=== PATIENT | male | born 1955 | race Caucasian/White ===

== ENCOUNTER 2019-10-10 15:22 | Inpatient (IN) | payer OTHER ==
[~2019-10-10] VITALS: Ht 162.6 cm; Wt 95.7 kg
--- NOTE | 2019-10-10 15:35 | NUR ---
BIBA RA 90 From Home "Chest pressure started 2H ago radiating to Left arm given 3NTG and 325 Asa NSR" Patient a/ox4, breathing even and unlabored, no sob noted, needs attended. Attached to the panel monitor.
--- NOTE | 2019-10-10 15:48 | NUR ---
SUBMITTED MOVE SHEET AND CALLED FOR TELE BED.
[2019-10-10] MEDS ORDERED: ONDANSETRON HCL/PF 4 MG/2 ML VIAL ONE (15:51)
[2019-10-10] MEDS ORDERED: MORPHINE SULFATE INJ 4 MG/ML DISP.SYRIN ONE (15:51)
[2019-10-10] MEDS ORDERED: ONDANSETRON HCL/PF 4 MG/2 ML VIAL IVP ONE (16:00)
[2019-10-10] MEDS ORDERED: MORPHINE SULFATE INJ 2 MG/ML DISP.SYRIN IV ONE ×2 (16:00→16:30)
--- NOTE | 2019-10-10 16:06 | NUR ---
PT REFUSED TO HAVE THE COVID ATIGEN SWAB TO BE DONE. MD IS MADE AWARE.
[2019-10-10 16:11] LABS: BASOPHILS # (AUTO) 0.1 /CMM (0.0-0.2); EOSINOPHILS % (AUTO) 1.6 % (0.0-6.0); HEMATOCRIT 41 % (39-51); HEMOGLOBIN 13.7 g/dL (13.5-17.5); LYMPHOCYTES # (AUTO) 2.9 /CMM (0.8-4.8); MEAN CORPUSCULAR HGB CONC 34 g/dl (31.0-36.0); MEAN CORPUSCULAR VOLUME 93 fL (80-96); MONOCYTES # (AUTO) 0.7 /CMM (0.1-1.30); MONOCYTES % (AUTO) 7.9 % (2.0-12.0); NEUTROPHILS % (AUTO) 56.5 % (43.0-81.0); PLATELET COUNT (AUTO) 206 /CMM (150-450); WHITE BLOOD COUNT (AUTO) 8.8 K/uL (4.3-11.0)
[2019-10-10] MEDS ORDERED: LORAZEPAM INJ 2 MG/ML VIAL ONE (16:12)
[2019-10-10] MEDS ORDERED: LORAZEPAM INJ 2 MG/ML VIAL IV ONE (16:30)
[2019-10-10 16:42] LABS: CALCIUM, SERUM 8.7 mg/dL (8.5-10.1); CREATININE 1.2 mg/dL (0.6-1.3); POTASSIUM 3.5 mmol/L (3.5-5.1)
--- NOTE | 2019-10-10 16:43 | NUR ---
PATIENT RESTING, DENIES CHEST PAIN AT THIS TIME. NEEDS ATTENDED. KEPT COMFORTABLE. PT STATED HE'S HUNGRY, CARDIAC DIET ORDERED, OK'D BY DR. KLEIN.
--- NOTE | 2019-10-10 16:50 | NUR ---
REPORT GIVEN TO ALON ADVANCED PRACTICE NURSE.
[2019-10-10] MEDS ORDERED: METF-442 PO (17:32)
[2019-10-10] MEDS ORDERED: INSU100V SQ (17:32)
[2019-10-10] MEDS ORDERED: SENN-261 PO (17:32)
[2019-10-10] MEDS ORDERED: ATOR80TA PO (17:32)
[2019-10-10] MEDS ORDERED: IBUP-1955 PO (17:32)
[2019-10-10] MEDS ORDERED: INSU100I26 SQ (17:32)
[2019-10-10] MEDS ORDERED: GABA300C PO (17:32)
[2019-10-10] MEDS ORDERED: PANT40TA4 PO (17:32)
[2019-10-10] MEDS ORDERED: LOSA100T31 PO (17:32)
[2019-10-10] MEDS ORDERED: ERTU5TAB PO (17:32)
[2019-10-10] MEDS ORDERED: AMLO2.5T4 PO (17:32)
[2019-10-10] MEDS ORDERED: CLOP75TA15 PO (17:32)
[2019-10-10] MEDS ORDERED: ASPI-1420 PO (17:32)
[2019-10-10] MEDS ORDERED: EZET10TA32 PO (17:32)
[2019-10-10] MEDS ORDERED: FURO40TA5 PO (17:32)
[2019-10-10] MEDS ORDERED: TAMS-12 PO (17:32)
[2019-10-10] MEDS ORDERED: CARV25TA2 PO (17:32)
--- NOTE | 2019-10-10 18:05 | NUR ---
CONSULT BO LOPEZ CALLED [phone].
[2019-10-10] MEDS ORDERED: ASPIRIN 325 MG TABLET PO SCH (19:00)
[2019-10-10] MEDS ORDERED: ACETAMINOPHEN 325 MG TABLET PO PRN (19:00)
[2019-10-10] MEDS ORDERED: Z GUARD REMEDY 2 OZ OINT TP PRN (19:00)
[2019-10-10] MEDS ORDERED: DEXTROSE 50%-WATER 50 ML DISP.SYRIN IV PRN (19:00)
[2019-10-10] MEDS ORDERED: *INSULIN REGULAR(HUMULIN R)HUM 100 UNIT/ML VIAL SQ PRN (19:00)
[2019-10-10] MEDS ORDERED: ONDANSETRON HCL/PF 4 MG/2 ML VIAL IVP PRN (19:00)
[2019-10-10] MEDS ORDERED: MAG HYDROX/AL HYDROX/SIMETH 30 ML UDC PO PRN (19:00)
[2019-10-10] MEDS ORDERED: MAGNESIUM HYDROXIDE 30 ML UDC PO PRN (19:00)
[2019-10-10] MEDS ORDERED: ENOXAPARIN SODIUM 100 MG/ML DISP.SYRIN SQ ONE (19:21)
[2019-10-10] MEDS ORDERED: ENOXAPARIN SODIUM 100 MG/ML DISP.SYRIN SQ SCH (19:30)
--- NOTE | 2019-10-10 19:35 | NUR ---
PATIENT RESTING, NO DISTRESS NOTED, DENIES PAIN AT THIS TIME. ENDORSED TO LOS GRANT FOR CELIA.
--- NOTE | 2019-10-10 20:25 | NUR ---
PT SITTING IN BED AWAKE AND LAERT. NO SOB. NO C/O PAIN OR DISCOMFORT. PT WAS PROVIDED W. FOOD AND DRINK. WILL CONT TO MONITOR ,
[2019-10-10] MEDS: NITROGLYCERIN PACKET 1 GM PACKET TOP SCH ×2 (21:00→22:36)
--- NOTE | 2019-10-10 21:04 | NUR ---
TELE 315-2
--- NOTE | 2019-10-10 21:11 | NUR ---
REOPRT GIVEN TO LEONARD ON THIRD FLOOR
[2019-10-10 21:30] VITALS: BP 140/68
--- NOTE | 2019-10-10 21:30 | NUR ---
FUEL PILOT ENGINEER ADMITTING NOTES PATIENT ARRIVED TO UNIT VIA GURNEY, ACCOMPANIED BY 2 ER STAFF; PATIENT AWAKE, A/OX4; BREATHING EVEN AND UNLABORED; NO SOB NOTED; TOLERATING ROOM AIR WELL; PATIENT INDEPENDENT WITH BED MOBILITY; VITALS STABLE; TELE MONITOR ATTACHED, READS NORMAL SINUS HALEIGH - SINUS RHYTHM 54S - 60S BPM; R HAND # 18, INTACT AND PATENT, FLUSHING WELL; NO S/S OF REDNESS OR INFILTRATION; PATIENT DOES NOT WANT TO REMOVE SWEAT PANTS; BUT WAS WILLING FOR SKIN ASSESSMENT; SKIN INTACT; PATIENT COMPLAINT OF 8 OR 9/10 CHEST PAIN; DESCRIBED FEELING LIKE SOMEONE IS PUSHING HIS CHEST; PATIENT REPORTED IN ER THAT IT SOMETIMES RADIATES TO ARMS; WILL CONT TO MONITOR; MEDICAL HISTORY OBTAINED; PATIENT DOES NOT WANT DVT PUMPS; NO DISTRESS NOTED; BELONGINGS CHECKED; PATIENT ORIENTED TO UNIT AND STAFF; SAFETY PRECAUTIONS IMPLEMENTED; BED LOCKED IN LOW POSITION; SIDE RAILSX2; CALL LIGHT WITHIN REACH; PATIENT ABLE TO MAKE NEEDS KNOWN; WILL CONT TO MONITOR PATIENT
--- NOTE | 2019-10-10 21:35 | NUR ---
PT WAS TRANSFERRED TO [facility] UNDER ACLS
--- NOTE | 2019-10-10 21:36 | NUR ---
ELEVATED TROP WAS RELAYED AND ENDORSED TO RUDY VALLE TO FOLLOW UP WITH HOSPITALIST
[2019-10-10 22:00] VITALS: BP 140/68
[2019-10-10] MEDS: ATORVASTATIN 40 MG TABLET PO SCH (22:35)
[2019-10-10] MEDS: TAMSULOSIN 0.4 MG CAP.SR.24H PO SCH (22:35)
[2019-10-10] MEDS: SENNOSIDES 8.6 MG TABLET PO SCH (22:35)
--- NOTE | 2019-10-10 22:35 | NUR ---
ENDOSCOPY NURSE VTE SCORE OF 3, MD MADE AWARE; AWAITING MD ORDERS FOR CHEMICAL PROPHYLAXIS; WILL CONT TO MONITOR
[2019-10-10] MEDS: BLOOD SUGAR DIAGNOSTIC 1 EACH STRIP VI SCH (22:45)
[2019-10-10] MEDS: MORPHINE SULFATE INJ 2 MG/ML DISP.SYRIN IV PRN (22:53)
--- NOTE | 2019-10-10 23:20 | NUR ---
NATURAL GAS TRADER NOTES SPOKE WITH RADIATION TECHNICIAN PHARMACY REGARDING DISCREPANCIES IN MED ORDERS; PER RADIATION TECHNICIAN PHARMACY, THEY WILL WORK ON FIXING THE MEDICATIONS SINCE PATIENT CAME UP TO UNIT AFTER DUE DATE FOR SOME; CHARGE NURSE AND NURSING SECOND CHEF AWARE; WILL CONT TO MONITOR;
[2019-10-10] MEDS: LORAZEPAM 1 MG TABLET PO PRN (23:47)
[2019-10-11] VITALS: BP 133/76
[2019-10-11] MEDS: HYDROCODONE/APAP 5/325MG TABLET PO PRN (03:33)
[2019-10-11] MEDS: ASPIRIN EC 81 MG TABLET.DR PO SCH (03:35)
[2019-10-11 04:00] VITALS: BP 128/76
[2019-10-11 04:30] VITALS: BP 125/76
[2019-10-11] MEDS: NITROGLYCERIN PACKET 1 GM PACKET TOP SCH (04:57)
--- NOTE | 2019-10-11 07:02 | NUR ---
PSYCHIATRY PHYSICIAN CLOSING NOTES PATIENT RESTING IN BED COMFORTABLY; A/OX4; BREATHING EVEN AND UNLABORED; TOLERATING ROOM AIR WELL; NO SOB NOTED; TELE MONITOR READS SINUS HALEIGH - SINUS RHYTHM WITH 54S - 60S BPM; R HAND #18 SL INTACT AND PATENT, FLUSHING WELL; PATIENT ABLE TO MAKE NEEDS KNOWN; PER PATIENT, OK TO APPLY DVT PUMPS IN MORNING, PATIENT WILL LET MORNING NURSE AWARE; R HAND #18 SL, INTACT AND PATENT; ALL NEEDS RENDERED; SAFETY PRECAUTIONS IMPLEMENTED; BED LOCKED IN LOW POSITION; SIDE RAILSX2; CALL LIGHT WITHIN EASY REACH; WILL ENDORSE CELIA TO ONCOMING NURSE
[2019-10-11 07:07] LABS: BASOPHILS # (AUTO) 0.1 /CMM (0.0-0.2); BASOPHILS % (AUTO) 0.8 % (0.0-2.0); EOSINOPHILS % (AUTO) 1.1 % (0.0-6.0); HEMATOCRIT 40 % (39-51); HEMOGLOBIN 13.1 g/dL (13.5-17.5); LYMPHOCYTES # (AUTO) 2.5 /CMM (0.8-4.8); LYMPHOCYTES % (AUTO) 29.9 % (20.0-44.0); MEAN CORPUSCULAR HGB CONC 33 g/dl (31.0-36.0); MEAN CORPUSCULAR VOLUME 94 fL (80-96); MONOCYTES # (AUTO) 0.6 /CMM (0.1-1.30); MONOCYTES % (AUTO) 7.2 % (2.0-12.0); NEUTROPHILS # (AUTO) 5.1 /CMM (1.8-8.9); PLATELET COUNT (AUTO) 184 /CMM (150-450); RED BLOOD CELL COUNT(AUTO) 4.31 MIL/uL (4.5-6.0); WHITE BLOOD COUNT (AUTO) 8.3 K/uL (4.3-11.0)
--- NOTE | 2019-10-11 07:24 | NUR ---
ASSISTANT EDITOR NOTES PATIENT RECEIVED IN BED RESTING COMFORTABLY, AWAKE, ALERT AND ORIENTED X 4. ON ROOM AIR WITH NO SIGNS OF RESPIRATORY DISTRESS AT THIS TIME, WITH EVEN NON-LABORED BREATHING, AND NO SOB NOTED. ON PROPERTY FIELD ADJUSTER, SINUS RHYTHM 75. SKIN WARM AND DRY TO TOUCH. IV ACCESS INTACT AND PATENT. PATIENT PRESENTS WITH NO SIGNS OF PAIN OR DISCOMFORT. SAFETY PRECAUTIONS IN PLACE WITH BED LOCKED, BED IN THE LOWEST POSITION, BILATERAL SIDE RAILS UP, AND CALL LIGHT WITHIN EASY REACH OF THE PATIENT. WILL CONTINUE TO MONITOR PATIENT.
[2019-10-11 08:00] VITALS: BP 116/59
[2019-10-11] MEDS ORDERED: NITROGLYCERIN 0.4 MG/TAB BOTTLE SL PRN (08:00)
[2019-10-11 08:13] LABS: CALCIUM, SERUM 8.5 mg/dL (8.5-10.1); CREATININE 1.2 mg/dL (0.6-1.3); MAGNESIUM 2.3 mg/dL (1.8-2.4); PHOSPHORUS 3.5 mg/dL (2.5-4.9); POTASSIUM 3.7 mmol/L (3.5-5.1)
[2019-10-11] MEDS ORDERED: ASPIRIN EC 81 MG TABLET.DR PO SCH (09:00)
[2019-10-11] MEDS: CARVEDILOL 12.5 MG TABLET PO SCH ×2 (09:00→17:01)
[2019-10-11] MEDS: FUROSEMIDE 40 MG TABLET PO SCH (09:26)
[2019-10-11] MEDS: GABAPENTIN 300 MG CAPSULE PO SCH ×2 (09:26→17:00)
[2019-10-11] MEDS: PANTOPRAZOLE 40 MG TABLET.DR PO SCH (09:27)
[2019-10-11] MEDS: AMLODIPINE BESYLATE 2.5 MG TABLET PO SCH (09:28)
[2019-10-11] MEDS: EZETIMIBE 10 MG TABLET PO SCH (09:28)
[2019-10-11] MEDS: CLOPIDOGREL BISULFATE 75 MG TABLET PO SCH (09:28)
[2019-10-11] MEDS: LOSARTAN POTASSIUM 50 MG TABLET PO SCH (09:28)
[2019-10-11] MEDS: ENOXAPARIN SODIUM 100 MG/ML DISP.SYRIN SQ SCH ×2 (09:30→20:30)
[2019-10-11] MEDS: BLOOD SUGAR DIAGNOSTIC 1 EACH STRIP VI SCH ×4 (09:31→21:19)
[2019-10-11] MEDS: LORAZEPAM 1 MG TABLET PO PRN ×2 (09:47→18:08)
--- NOTE | 2019-10-11 09:47 | NUR ---
ONCOLOGY NURSE NOTES PATIENT STATING HE IS ANXIOUS AND REQUESTING ATIVAN. ADMINISTERED PRN PO ATIVAN 0.5mg, ORDERED WILL CONTINUE TO MONITOR PATIENT.
[2019-10-11] MEDS ORDERED: NITROGLYCERIN 0.4 MG/TAB BOTTLE SL ONE (10:00)
[2019-10-11] MEDS ORDERED: METOPROLOL TARTRATE INJ 5 MG/5 ML AMPUL IVP PRN (10:00)
[2019-10-11] MEDS ORDERED: IV NS 0.9% 250 ML IV ONE (10:03)
[2019-10-11] MEDS ORDERED: IOHEXOL-350 100 ML VIAL IV ONE (10:03)
[2019-10-11] MEDS ORDERED: CT SWABBABLE VALVE TRANS SET 1 EA INFUS.SET MC ONE (10:03)
[2019-10-11] MEDS: IV NS 0.9% 1,000 ML IV PRN (10:23)
--- NOTE | 2019-10-11 11:00 | NUR ---
RN NOTES; POST CTA: Patient completed CTA procedure, able to tolerate well, no discomfort or pain at this time. Patient transferred back to floor report given to Veda GRANT
[2019-10-11 11:27] VITALS: BP 136/70
[2019-10-11] MEDS: MORPHINE SULFATE INJ 2 MG/ML DISP.SYRIN IV PRN ×2 (11:27→20:30)
--- NOTE | 2019-10-11 11:27 | NUR ---
OUTREACH LIAISON NOTES PATIENT COMPLAINING OF DULL ACHING PAIN THROUGHOUT HIS ARMS, PAIN IN HIS LEG WELL. REQUESTING PAIN MEDICATION , OFFERED NORCO, PATIENT STATES NORCO DOES NOT WORK AND REQUESTING MORPHINE. ADMINISTERED MORPHINE 2mg/mL ORDERED. WILL CONTINUE TO MONITOR PATIENT.
[2019-10-11] MEDS: NITROGLYCERIN 30 GM TUBE TOP SCH ×2 (13:13→20:59)
--- NOTE | 2019-10-11 15:00 | NUR ---
CST NOTES INFORMED DR LOPEZ CT ANGIOGRAM RESULTS, NO NEW ORDERS AT THIS TIME. WILL CONTINUE TO MONITOR PATIENT.
[2019-10-11] MEDS: INSULIN REGULAR, HUMAN 100 UNIT/ML 3 ML VIAL SQ PRN (17:08)
--- NOTE | 2019-10-11 18:08 | NUR ---
AUTO PARTS PROFESSIONAL NOTES PATIENT STATING HE FEELS ANXIOUS AND IS REQUESTING ATIVAN 1mg. INFORMED HIM THAT THE ORDERED DOSE IS 0.5mg, NOTIFIED DR CUTLER THAT PATIENT TAKES 1mg AT HOME. CHANGED PRN ATIVAN TO 1 mg PO AND ADMINISTERED ORDERED. WILL CONTINUE TO MONITOR PATIENT.
--- NOTE | 2019-10-11 19:25 | NUR ---
DRY CELL SEALER NOTES PATIENT IN BED RESTING COMFORTABLY, ALERT AND ORIENTED X 4. ON ROOM AIR WITH NO SIGNS OF RESPIRATORY DISTRESS AT THIS TIME, WITH EVEN NON-LABORED BREATHING, AND NO SIGNS OF SOB NOTED. PATIENT ON FINANCIAL PLANNING CONSULTANT SINUS RHYTHM, 64. PATIENT SKIN WARM AND DRY TO TOUCH, NEW IV ACCESS PLACE ON RIGHT HAND 22 gauge. WALKER AT BEDSIDE PER PATIENT REQUESTED. PROVIDED AND MET ALL PATIENT'S NEEDS. SAFETY PRECAUTIONS IMPLEMENTED WITH BED LOCKED, BED IN THE LOWEST POSITION, BED ALARM ON, BILATERAL SIDE RAILS UP, AND CALL LIGHT AT BEDSIDE. WILL ENDORSE PLAN OF CARE TO UPCOMING NURSE.
--- NOTE | 2019-10-11 19:40 | NUR ---
MORTISING MACHINE OPERATOR OPEN NOTES PATIENT IS LAYING IN BED. A/OX 4. ON RA, NO SOB/ ACUTE RESPIRATORY DISTRESS NOTED. BED IS IN LOWEST LOCKED POSITION WITH SIDE RAILS UP X3, SEMI FOWLERS. CALL LIGHT IS WITHIN REACH. WILL CONTINUE TO MONITOR.
[2019-10-11 20:56] VITALS: BP 148/75
[2019-10-11] MEDS: SENNOSIDES 8.6 MG TABLET PO SCH (21:13)
[2019-10-11] MEDS: TAMSULOSIN 0.4 MG CAP.SR.24H PO SCH (21:13)
[2019-10-11] MEDS: ATORVASTATIN 40 MG TABLET PO SCH (21:13)
[2019-10-12] VITALS: BP 127/56
[2019-10-12 02:58] VITALS: BP 127/56
[2019-10-12] MEDS: MORPHINE SULFATE INJ 2 MG/ML DISP.SYRIN IV PRN (03:20)
[2019-10-12 04:00] VITALS: BP 138/69
[2019-10-12] MEDS: NITROGLYCERIN 30 GM TUBE TOP SCH ×2 (04:33→13:33)
[2019-10-12] MEDS: IV NS 0.9% 1,000 ML IV PRN (06:05)
--- NOTE | 2019-10-12 06:36 | NUR ---
MANAGER SHIFT CLOSE NOTES PATIENT IS LAYING IN BED. A/O X4. ON RA, NO SOB/ ACUTE RESPIRATORY DISTRESS NOTED. IV IN RIGHT HAND #22G IS PATENT AND INTACT RUNNING NS @100MLS/HR. APPEARS COMFORTABLE/ NO COMPLAINTS OF PAIN AT THE MOMENT. ALL ACCUCHECKS DONE. BED IS IN LOWEST LOCKED POSITION WITH SIDE RAILS UP X3, SEMI FOWLERS. CALL LIGHT IS WITHIN REACH. WILL ENDORSE TO AM NURSE.
[2019-10-12] MEDS: BLOOD SUGAR DIAGNOSTIC 1 EACH STRIP VI SCH ×2 (06:38→11:35)
--- NOTE | 2019-10-12 07:27 | NUR ---
FUR MACHINE OPERATOR NOTES PATIENT RECEIVED IN BED AWAKE AND ORIENTED X 4. ON ROOM AIR WITH NO SIGNS OF RESPIRATORY DISTRESS AT THIS TIME, WITH NON-LABORED BREATHING, AND NO SIGNS OF SOB NOTED. ON PROGRAM MGR SINUS RHYTHM 61. PATIENT SKIN WARM AND DRY TO TOUCH, IV ACCESS INTACT AND PATENT. SAFETY PRECAUTIONS IMPLEMENTED WITH BED LOCKED, BED IN THE LOWEST POSITION, BILATERAL SIDE RAILS UP, BED ALARM ON AND CALL LIGHT WITHIN EASY REACH OF THE PATIENT. WILL CONTINUE TO MONITOR PATIENT.
[2019-10-12 08:00] VITALS: BP 150/78
[2019-10-12] MEDS: FUROSEMIDE 40 MG TABLET PO SCH (08:14)
[2019-10-12] MEDS: GABAPENTIN 300 MG CAPSULE PO SCH (08:14)
[2019-10-12] MEDS: PANTOPRAZOLE 40 MG TABLET.DR PO SCH (08:15)
[2019-10-12] MEDS: AMLODIPINE BESYLATE 2.5 MG TABLET PO SCH (08:15)
[2019-10-12] MEDS: EZETIMIBE 10 MG TABLET PO SCH (08:15)
[2019-10-12] MEDS: CLOPIDOGREL BISULFATE 75 MG TABLET PO SCH (08:15)
[2019-10-12] MEDS: ASPIRIN EC 81 MG TABLET.DR PO SCH (08:15)
[2019-10-12] MEDS: LOSARTAN POTASSIUM 50 MG TABLET PO SCH (08:15)
[2019-10-12] MEDS: CARVEDILOL 12.5 MG TABLET PO SCH (08:17)
[2019-10-12] MEDS: ENOXAPARIN SODIUM 100 MG/ML DISP.SYRIN SQ SCH (08:18)
[2019-10-12] MEDS: LORAZEPAM 1 MG TABLET PO PRN (08:19)
--- NOTE | 2019-10-12 09:00 | NUR ---
EMBEDDED FIRMWARE DEVELOPER NOTES PATIENT REMOVED IV, APPLIED PRESSURE TO SITE, AND CATHETER TIP INTACT.
[2019-10-12 09:51] VITALS: BP 132/73
[2019-10-12] MEDS: HYDROCODONE/APAP 5/325MG TABLET PO PRN (09:51)
--- NOTE | 2019-10-12 11:35 | NUR ---
MS RN NOTES PATIENT'S BLOOD SUGAR 171, REFUSING INSULIN DOSE PER SLIDING SCALE. EDUCATED AND EXPLAINED THE BENEFITS AND RISKS, PATIENT KEPT REFUSING. WILL CONTINUE TO MONITOR PATIENT.
[2019-10-12 13:33] VITALS: BP 144/71
[2019-10-12] MEDS: INSULIN REGULAR, HUMAN 100 UNIT/ML 3 ML VIAL SQ PRN (13:34)
--- NOTE | 2019-10-12 13:34 | NUR ---
MS RN NOTES PATIENT REQUESTING TO CHECK BLOOD SUGAR LEVELS. RECHECKED PATIENTS BLOOD SUGAR, 201, INFORMED THE NEED OF COVERAGE. PER SLINGING SCALE, 6 UNITS OF INSULIN NEEDED. PATIENT AGREED AND ADMINISTERED 6 UNITS. PROVIDED JUICE TO THE PATIENT.
--- NOTE | 2019-10-12 14:30 | NUR ---
MS RN NOTES PATIENT ALERT AND ORIENTED X 4, ON ROOM AIR WITH NO SIGNS OF RESPIRATORY DISTRESS, AND WITH NON-LABORED BREATHING. VITAL SIGNS STABLE AND PATIENT MEDICALLY STABLE FOR DISCHARGE BY MD. PATIENT ID BAND REMOVED. PATIENT ACCOUNTED FOR ALL BELONGINGS. EXIT CARE AND EDUCATED PROVIDED TO PATIENT. PATIENT LEFT UNIT VIA WHEELCHAIR ACCOMPANIED BY STAFF MEMBER. CELL LINER BY IN PRIVATE CAR.
== END 2019-10-12 15:06 | disposition home or self-care (01) | DRG 198 ==
LOC: ER 15:28 → TELE 21:13 → MED 10-12 10:05
PROVIDERS: ADMIT Internal Medicine; ATTEND Internal Medicine
DX: I25.10 Atherosclerotic heart disease of native coronary artery without angina pectoris (principal); E78.5 Hyperlipidemia, unspecified; F17.200 Nicotine dependence, unspecified, uncomplicated; G62.9 Polyneuropathy, unspecified; I25.2 Old myocardial infarction; J44.9 Chronic obstructive pulmonary disease, unspecified; N40.0 Benign prostatic hyperplasia without lower urinary tract symptoms; Z89.512 Acquired absence of left leg below knee; Z95.1 Presence of aortocoronary bypass graft; E11.51 Type 2 diabetes mellitus with diabetic peripheral angiopathy without gangrene; Z71.6 Tobacco abuse counseling; Z79.4 Long term (current) use of insulin; Z79.02 Long term (current) use of antithrombotics/antiplatelets; N18.9 Chronic kidney disease, unspecified; I12.9 Hypertensive chronic kidney disease with stage 1 through stage 4 chronic kidney disease, or unspecified chronic kidney disease; J81.1 Chronic pulmonary edema; M94.0 Chondrocostal junction syndrome [Tietze]
CPT/HCPCS: 36415; 71045-TC; 75574; 80048-TC; 80061-TC; 82962-TC; 83735-TC; 84100-TC; 84484-TC; 85025-TC; 87081-TC; 93307-TC; G0378; J1650; J1815; J2060; J2270; J2405; J7030; J7050; Q9967

== ENCOUNTER 2020-09-08 23:09 | Inpatient (IN) | payer OTHER ==
[~2020-09-08] VITALS: Ht 160 cm; Wt 91.6 kg
[~2020-09-08 23:09] MED LIST: AMLO2.5T4 PO; ASPI-1420 PO; ATOR80TA PO; CARV25TA2 PO; CLOP75TA15 PO; ERTU5TAB PO; EZET10TA32 PO; FURO40TA5 PO; GABA300C PO; IBUP-1955 PO; INSU100I26 SQ; INSU100V SQ; LOSA100T31 PO; METF-442 PO; PANT40TA49 PO; SENN-261 PO; TAMS-12 PO
--- NOTE | 2020-09-08 23:20 | NUR ---
PATIENT BIBRA90, C/O MID STERNAL CP X 1 WEEK NON RADIATING. PATIENT IS A/O X 4, RR EVEN AND UNLABORED, NO SIGNS OF SOB NOTED. PATIENT STABLE ON ROOM AIR. PATIENT CONNCETED TO BOOTH MANAGER AND POX.
[2020-09-08 23:42] LABS: BASOPHILS # (AUTO) 0.1 K/uL (0.0-0.2); BASOPHILS % (AUTO) 0.8 % (0.0-2.0); EOSINOPHILS % (AUTO) 1.6 % (0.0-6.0); HEMATOCRIT 39 % (39-51); HEMOGLOBIN 12.7 g/dL (13.5-17.5); LYMPHOCYTES # (AUTO) 3.3 K/uL (0.8-4.8); LYMPHOCYTES % (AUTO) 38.3 % (20.0-44.0); MEAN CORPUSCULAR HGB CONC 33 g/dl (31.0-36.0); MEAN CORPUSCULAR VOLUME 89 fL (80-96); MONOCYTES # (AUTO) 0.8 K/uL (0.1-1.30); NEUTROPHILS # (AUTO) 4.3 K/uL (1.8-8.9); NEUTROPHILS % (AUTO) 50.3 % (43.0-81.0); PLATELET COUNT (AUTO) 178 K/uL (150-450); RED BLOOD CELL COUNT(AUTO) 4.34 MIL/uL (4.5-6.0); WHITE BLOOD COUNT (AUTO) 8.5 K/uL (4.3-11.0)
[2020-09-08 23:59] LABS: ALBUMIN 3.5 g/dL (3.4-5.0); BILIRUBIN,DIRECT 0.1 mg/dL (0.0-0.2); BILIRUBIN,TOTAL 0.2 mg/dL (0.2-1.0); CALCIUM, SERUM 8.4 mg/dL (8.5-10.1); CREATININE 0.9 mg/dL (0.6-1.3); POTASSIUM 3.3 mmol/L (3.5-5.1)
--- NOTE | 2020-09-09 00:20 | NUR ---
MANNY KATE NP PAGED PER ER MD ORDER FOR ADMISSION.
--- NOTE | 2020-09-09 00:25 | NUR ---
COVID SWAB COLLECTED AND SENT TO LAB
[2020-09-09] MEDS ORDERED: MORPHINE SULFATE INJ 2 MG/ML DISP.SYRIN IV ONE (00:30)
[2020-09-09] MEDS ORDERED: ENOXAPARIN SODIUM 100 MG/ML DISP.SYRIN SQ ONE ×3 (00:30→10:03)
[2020-09-09] MEDS ORDERED: MORPHINE SULFATE INJ 2 MG/ML DISP.SYRIN ONE ×2 (00:44→08:53)
[2020-09-09] MEDS ORDERED: POTASSIUM CHLORIDE 20 MEQ TAB.PRT.SR PO ONE ×2 (01:30→03:14)
[2020-09-09] MEDS ORDERED: ACETAMINOPHEN 325 MG TABLET PO PRN (02:00)
[2020-09-09] MEDS ORDERED: ONDANSETRON HCL/PF 4 MG/2 ML VIAL IVP PRN (02:00)
[2020-09-09] MEDS ORDERED: DEXTROSE 50%-WATER 50 ML DISP.SYRIN IV PRN (02:00)
[2020-09-09] MEDS ORDERED: ZOLPIDEM TARTRATE 5 MG TABLET PO PRN (02:00)
[2020-09-09] MEDS ORDERED: MAG HYDROX/AL HYDROX/SIMETH 30 ML UDC PO PRN (02:00)
[2020-09-09] MEDS ORDERED: MAGNESIUM HYDROXIDE 30 ML UDC PO PRN (02:00)
[2020-09-09] MEDS: AZITHROMYCIN 500 MG in IV D5W 250 ML IV SCH (03:00)
[2020-09-09] MEDS: CEFTRIAXONE 1 G in IV D5W 50 ML IV SCH (03:00)
[2020-09-09] MEDS ORDERED: CEFTRIAXONE 1GM BAG (ER ONLY) 50 ML IV ONE (05:02)
--- NOTE | 2020-09-09 05:20 | NUR ---
PHLEBOTOMY AT BEDSIDE
[2020-09-09 05:37] LABS: BASOPHILS # (AUTO) 0.1 K/uL (0.0-0.2); BASOPHILS % (AUTO) 1.4 % (0.0-2.0); HEMATOCRIT 39 % (39-51); HEMOGLOBIN 12.8 g/dL (13.5-17.5); LYMPHOCYTES # (AUTO) 3.3 K/uL (0.8-4.8); LYMPHOCYTES % (AUTO) 39.7 % (20.0-44.0); MEAN CORPUSCULAR HGB CONC 33 g/dl (31.0-36.0); MEAN CORPUSCULAR VOLUME 90 fL (80-96); MONOCYTES # (AUTO) 0.7 K/uL (0.1-1.30); MONOCYTES % (AUTO) 8.8 % (2.0-12.0); NEUTROPHILS % (AUTO) 48.1 % (43.0-81.0); PLATELET COUNT (AUTO) 174 K/uL (150-450); RED BLOOD CELL COUNT(AUTO) 4.37 MIL/uL (4.5-6.0); WHITE BLOOD COUNT (AUTO) 8.2 K/uL (4.3-11.0)
[2020-09-09] MEDS ORDERED: AZITHROMYCIN 500 MG VIAL ONE (05:41)
[2020-09-09 05:43] LABS: CALCIUM, SERUM 8.3 mg/dL (8.5-10.1); CREATININE 0.9 mg/dL (0.6-1.3); POTASSIUM 3.4 mmol/L (3.5-5.1)
[2020-09-09] MEDS: BLOOD SUGAR DIAGNOSTIC 1 EACH STRIP IN SCH ×4 (07:16→21:29)
--- NOTE | 2020-09-09 07:57 | NUR ---
JAYLENE ENRIQUE CALLED,NO BED AT THIS TIME
[2020-09-09] MEDS ORDERED: CARVEDILOL 12.5 MG TABLET ONE (08:11)
[2020-09-09] MEDS ORDERED: CLOPIDOGREL BISULFATE 75 MG TABLET ONE (08:12)
[2020-09-09] MEDS ORDERED: ASPIRIN EC 81 MG TABLET.DR PO ONE (08:12)
[2020-09-09] MEDS ORDERED: EZETIMIBE 10 MG TABLET ONE (08:12)
[2020-09-09] MEDS ORDERED: FUROSEMIDE 40 MG TABLET ONE (08:12)
[2020-09-09] MEDS ORDERED: LOSARTAN POTASSIUM 50 MG TABLET ONE (08:12)
[2020-09-09] MEDS ORDERED: PANTOPRAZOLE 40 MG TABLET.DR PO ONE (08:13)
[2020-09-09] MEDS ORDERED: GABAPENTIN 300 MG CAPSULE ONE (08:13)
[2020-09-09] MEDS ORDERED: INSULIN REGULAR, HUMAN 100 UNIT/ML 10 ML VIAL ONE (08:13)
[2020-09-09] MEDS: ASPIRIN EC 81 MG TABLET.DR PO SCH (08:23)
[2020-09-09] MEDS: AMLODIPINE BESYLATE 2.5 MG TABLET PO SCH (08:23)
[2020-09-09] MEDS: LOSARTAN POTASSIUM 50 MG TABLET PO SCH (08:23)
[2020-09-09] MEDS: CARVEDILOL 12.5 MG TABLET PO SCH ×2 (08:23→20:25)
[2020-09-09] MEDS: PANTOPRAZOLE 40 MG TABLET.DR PO SCH (08:23)
[2020-09-09] MEDS: CLOPIDOGREL BISULFATE 75 MG TABLET PO SCH (08:33)
[2020-09-09] MEDS: GABAPENTIN 300 MG CAPSULE PO SCH ×2 (08:33→16:33)
[2020-09-09] MEDS: EZETIMIBE 10 MG TABLET PO SCH (08:33)
[2020-09-09] MEDS: FUROSEMIDE 40 MG TABLET PO SCH (08:33)
[2020-09-09] MEDS: INSULIN REGULAR, HUMAN 100 UNIT/ML 3 ML VIAL SQ PRN ×3 (08:35→22:21)
[2020-09-09] MEDS: MORPHINE SULFATE INJ 2 MG/ML DISP.SYRIN IV PRN ×4 (08:58→21:21)
--- NOTE | 2020-09-09 09:07 | NUR ---
CALLED JEFF ARRIAGA AT [phone] TO RECEIVE RECORDS. THEY REQUEST TO CALL BACK IN 20 MIN WHEN RESIDENTIAL REAL ESTATE APPRAISER IS BACK FROM BREAK
--- NOTE | 2020-09-09 09:37 | NUR ---
FAXED AUTH TO RELEASE MEDICAL RECORDS TO [facility] AT [phone]
[2020-09-09] MEDS ORDERED: POTASSIUM CHLORIDE 20 MEQ TAB.PRT.SR PO SCH (10:00)
[2020-09-09] MEDS ORDERED: POTASSIUM CHLORIDE 10 MEQ TABLET.SA PO ONE (10:00)
[2020-09-09] MEDS ORDERED: POTASSIUM CHLORIDE 10 MEQ TABLET.SA ONE (10:04)
[2020-09-09] MEDS: ENOXAPARIN SODIUM 100 MG/ML DISP.SYRIN SQ SCH ×2 (10:09→20:27)
--- NOTE | 2020-09-09 10:10 | NUR ---
Dr. Alan at bedside and informed about patient already on plavix and aspirin, per md not to give lovenox sq. All orders carried out and noted.
--- NOTE | 2020-09-09 10:36 | NUR ---
FOLLOWED UP WITH [employer]. THEY ARE FAXING THE ANGIOGRAM RESULTS CURRENTLY
--- NOTE | 2020-09-09 11:06 | NUR ---
BED 306-2
--- NOTE | 2020-09-09 11:09 | NUR ---
WAIT UNTIL 1330 TO TRANSFER PT UP TO THE BED
--- NOTE | 2020-09-09 12:21 | NUR ---
report given to Camden GRANT for zuhair.
[2020-09-09 12:35] VITALS: BP 144/101
--- NOTE | 2020-09-09 12:37 | NUR ---
wheeled patient via gurney accompanied by RN and emt in no distress. RN assigned at bedside to assume care.
--- NOTE | 2020-09-09 12:39 | NUR ---
DIRECTOR OF INSTITUTIONAL GIVING NOTES RECEIVED PT FROM E.R. STAFF VIA [facility], ASSISTED PT TO BED, MADE COMFORTABLE, ROOM SET UP ORIENTATION PROVIDED TO PT, VERBALIZED UNDERSTANDING, PT IS ALERT AND ORIENTED, COMPLAINS OF SLIGHT CHEST PAIN, NOT IN DISTRESS, LUNCH SERVED, NEEDS ATTENDED.
[2020-09-09 16:00] VITALS: BP 134/69
[2020-09-09] MEDS: NITROGLYCERIN 0.4 MG/TAB BOTTLE SL PRN ×3 (17:26→17:58)
--- NOTE | 2020-09-09 18:28 | NUR ---
PERSONAL BANKING ASSISTANT NOTES PT IN BED, AWAKE, ALERT AND ORIENTED, PAIN MEDS GIVEN ORDERED, PT COMPLAINED OF ANXIETY, ASKING FOR ATIVAN, DR SOLANO INFORMED, DOES NOT WANT TO ORDER, PT INFORMED. PT COMPLAINED OF CHEST PRESSURE AND ASKED FOR NITRO, GIVEN ORDERED, VERBALIZED RELIEF, BLOOD PRESSURE MONITORED, ALL NEEDS ATTENDED.
[2020-09-09 18:56] VITALS: BP 133/75
--- NOTE | 2020-09-09 19:48 | NUR ---
CAPACITY PLANNING ENGINEER OPENING NOTE RECEIVED PT AWAKE IN BED. A/O X4. PT STABLE ON ROOM AIR. NO SOB OR S/S OF RESPIRATORY DISTRESS NOTED. PT ON EXTERNAL MATTRESS WEAVER READING SR 64. PT HAS NO C/O PAIN OR DISCOMFORT AT THIS TIME. IV ACCESS IN RIGHT FA #20 SALINE-LOCKED, INTACT AND PATENT. SAFETY MEASURES MAINTAINED. BED IN LOWEST LOCKED POSITION, HOB ELEVATED, SIDE RAILS UP X2. CALL LIGHT AND TABLE WITHIN REACH. WILL CONTINUE WITH PLAN OF CARE.
[2020-09-09 20:00] VITALS: BP 135/68
[2020-09-09] MEDS: TAMSULOSIN 0.4 MG CAP.SR.24H PO SCH (21:07)
[2020-09-09] MEDS: ATORVASTATIN 40 MG TABLET PO SCH (21:08)
--- NOTE | 2020-09-09 21:21 | NUR ---
RN PAIN PT C/O CHEST PAIN THAT DOES NOT RADIATE, RATED 10/10 ON 0-10 PAIN SCALE. VSS STABLE. PER PT REQUEST, ADMINISTERED MORPHINE SULFATE 2 MG IV Q4H PRN FOR PAIN. WILL CONTINUE TO MONITOR.
[2020-09-09] MEDS: INSULIN GLARGINE, 100 UNIT/ML CARTRIDGE SQ SCH (22:25)
[2020-09-10] VITALS: BP 130/69
[2020-09-10] MEDS: CEFTRIAXONE 1 G in IV D5W 50 ML IV SCH (02:31)
[2020-09-10] MEDS: AZITHROMYCIN 500 MG in IV D5W 250 ML IV SCH (03:24)
[2020-09-10 03:39] VITALS: BP 133/66
[2020-09-10] MEDS: NITROGLYCERIN 0.4 MG/TAB BOTTLE SL PRN ×7 (05:59→20:25)
[2020-09-10 06:20] LABS: BASOPHILS % (AUTO) 0.5 % (0.0-2.0); EOSINOPHILS % (AUTO) 1.2 % (0.0-6.0); HEMATOCRIT 41 % (39-51); HEMOGLOBIN 13.5 g/dL (13.5-17.5); LYMPHOCYTES # (AUTO) 2.3 K/uL (0.8-4.8); MEAN CORPUSCULAR HGB CONC 33 g/dl (31.0-36.0); MEAN CORPUSCULAR VOLUME 89 fL (80-96); MONOCYTES # (AUTO) 0.6 K/uL (0.1-1.30); NEUTROPHILS # (AUTO) 4.9 K/uL (1.8-8.9); NEUTROPHILS % (AUTO) 61.3 % (43.0-81.0); PLATELET COUNT (AUTO) 177 K/uL (150-450); RED BLOOD CELL COUNT(AUTO) 4.61 MIL/uL (4.5-6.0)
[2020-09-10] MEDS: BLOOD SUGAR DIAGNOSTIC 1 EACH STRIP IN SCH ×4 (06:32→22:27)
[2020-09-10 06:36] LABS: CALCIUM, SERUM 8.5 mg/dL (8.5-10.1); CREATININE 0.8 mg/dL (0.6-1.3); MAGNESIUM 2.1 mg/dL (1.8-2.4); POTASSIUM 3.6 mmol/L (3.5-5.1)
--- NOTE | 2020-09-10 06:44 | NUR ---
HEALTH INFORMATION TECHNICIAN CLOSING NOTE PT IS AWAKE IN BED. A/O X4. PT IS STABLE ON ROOM AIR. NO SOB OR S/S OF RESPIRATORY DISTRESS NOTED. PT ON EXTERNAL NOVELTY PRINTING MACHINE OPERATOR READING SR AT 65. PT HAS NO C/O PAIN OR DISCOMFORT AT THIS TIME. IV ACCESS IS INTACT, PATENT, AND FLUSHING WELL. ALL NEEDS HAVE BEEN MET. PAIN MANAGEMENT ADMINISTERED PER ORDER. SAFETY PRECAUTIONS MAINTAINED AT ALL TIMES. BED IN LOWEST LOCKED POSITION, HOB ELEVATED, SIDE RAILS UP X2. CALL LIGHT AND TABLE WITHIN REACH. WILL ENDORSE TO ONCOMING NURSE FOR CELIA.
--- NOTE | 2020-09-10 07:24 | NUR ---
RN NOTES SEEN PATIENT IN BED RESTING, AWAKE AND VERBALLY RESPONSIVE. BREATHING EVEN AND UNLABORED, TOLERATES ROOM AIR BUT USES O2 VIA NC AT 2LPM FOR COMFORT. A/O X4, STATELESS/SOMALI-SPEAKING, ABLE TO MAKE NEEDS KNOWN. ON CARDIAC MONITORING, READING OF SR W/ HR IN THE 60'S, NO CARDIAC DISTRESS. SAFETY MEASURES IN PLACE. IV LINE INTACT AND PATENT. WILL CONTINUE TO MONITOR.
[2020-09-10] MEDS: MORPHINE SULFATE INJ 2 MG/ML DISP.SYRIN IV PRN ×2 (07:54→17:34)
[2020-09-10] MEDS: PANTOPRAZOLE 40 MG TABLET.DR PO SCH (07:55)
[2020-09-10 08:00] VITALS: BP 160/74
[2020-09-10] MEDS: GABAPENTIN 300 MG CAPSULE PO SCH ×2 (08:27→16:04)
[2020-09-10] MEDS: FUROSEMIDE 40 MG TABLET PO SCH (08:27)
[2020-09-10] MEDS: EZETIMIBE 10 MG TABLET PO SCH (08:27)
[2020-09-10] MEDS: ASPIRIN EC 81 MG TABLET.DR PO SCH (08:27)
[2020-09-10] MEDS: CLOPIDOGREL BISULFATE 75 MG TABLET PO SCH (08:28)
[2020-09-10] MEDS: CARVEDILOL 12.5 MG TABLET PO SCH ×2 (08:28→21:00)
[2020-09-10] MEDS: LOSARTAN POTASSIUM 50 MG TABLET PO SCH (08:28)
[2020-09-10] MEDS: AMLODIPINE BESYLATE 2.5 MG TABLET PO SCH (08:28)
[2020-09-10] MEDS: ENOXAPARIN SODIUM 100 MG/ML DISP.SYRIN SQ SCH (08:29)
--- NOTE | 2020-09-10 08:30 | NUR ---
RN NOTES PATIENT SEEN BY DR. SOLANO TODAY W/ ORDERS NOTED. OK TO D/C IV ATB BUT NO ATIVAN AT THIS TIME BECAUSE OF PATIENT'S CONDITION.
[2020-09-10] MEDS: VALSARTAN 80 MG TABLET PO SCH (09:59)
[2020-09-10] MEDS ORDERED: AMLODIPINE BESYLATE 2.5 MG TABLET PO ONE (10:00)
--- NOTE | 2020-09-10 10:00 | NUR ---
RN NOTES PATIENT SEEN BY DR. LOPEZ TODAY AND REQUESTED FOR PATIENT'S MEDICAL RECORDS FROM [facility].
[2020-09-10] MEDS: ENOXAPARIN SODIUM 40 MG/0.4 ML DISP.SYRIN SQ SCH (11:03)
--- NOTE | 2020-09-10 11:10 | NUR ---
RN NOTES [facility] MEDICAL RECORDS REQUEST FAXED TODAY BY CHARGE NURSE; MEDICAL RECORDS CLOSED TODAY BUT REQUESTED STAT. REQUEST PLACED IN CHART.
[2020-09-10] MEDS: INSULIN REGULAR, HUMAN 100 UNIT/ML 3 ML VIAL SQ PRN ×2 (11:55→17:03)
[2020-09-10 16:00] VITALS: BP 155/77
--- NOTE | 2020-09-10 19:10 | NUR ---
TELE/RN OPENING NOTE RECEIVED PATIENT RESTING IN BED. AWAKE, ALERT AND ORIENTED X 4. ABLE TO MAKE NEEDS KNOWN. FAMILY CURRENTLY AT BEDSIDE. CONTINUES ON ROOM AIR WITH NO S/SX OF RESPIRATORY DISTRESS NOTED. IV ACCESS TO RIGHT FOREARM #20G INTACT, PATENT AND SALINE LOCKED. COMPLAINTS OF CHEST PRESSURE 6/10 - REQUESTING NITRO. CONTINUES ON TELE MONITOR WHICH READS SR 62. CALL LIGHT WITHIN REACH. ASPIRATION, FALL AND SAFETY PRECAUTIONS MAINTAINED. WILL CONTINUE TO MONITOR.
--- NOTE | 2020-09-10 19:30 | NUR ---
RN NOTES PATIENT RESTING IN BED, AWAKE AND VERBALLY RESPONSIVE. NOT IN ACUTE DISTRESS. CONTINUES CARDIAC MONITORING, NO CARDIAC DISTRESS. DUE MEDS GIVEN. SAFETY MEASURES MAINTAINED. ENDORSED TO DESIGN TECHNICIAN RN FOR CELIA.
[2020-09-10 20:00] VITALS: BP 134/68
--- NOTE | 2020-09-10 20:00 | NUR ---
TELE/RN NOTE PATIENT WITH C/O CHEST PAIN 'PRESSURE' 08/03 - ADMINISTERED PRN NITRO WITH PENDING EFFECT.
[2020-09-10] MEDS: INSULIN GLARGINE, 100 UNIT/ML CARTRIDGE SQ SCH (22:00)
[2020-09-10] MEDS: ATORVASTATIN 40 MG TABLET PO SCH (22:27)
[2020-09-10] MEDS: TAMSULOSIN 0.4 MG CAP.SR.24H PO SCH (22:27)
[2020-09-11] VITALS: BP 145/86
[2020-09-11] MEDS: MORPHINE SULFATE INJ 2 MG/ML DISP.SYRIN IV PRN ×2 (00:22→06:26)
[2020-09-11 04:00] VITALS: BP 149/75
--- NOTE | 2020-09-11 06:00 | NUR ---
TELE/RN CLOSING NOTE PATIENT CURRENTLY RESTING IN BED. AWAKE, ALERT AND ORIENTED X 4. ABLE TO MAKE NEEDS KNOWN. CONTINUES ON ROOM AIR WITH NO S/SX OF RESPIRATORY DISTRESS NOTED. IV ACCESS TO RIGHT HAND #20G INTACT, PATENT AND SALINE LOCKED. NO COMPLAINTS OF PAIN AT THIS TIME. CONTINUES ON TELE MONITOR WHICH READS SB 55. CALL LIGHT WITHIN REACH. ASPIRATION, FALL AND SAFETY PRECAUTIONS MAINTAINED. WILL ENDORSE PLAN OF CARE TO ONCOMING SHIFT.
[2020-09-11] MEDS ORDERED: MORPHINE SULFATE INJ 2 MG/ML DISP.SYRIN ONE (06:18)
[2020-09-11 06:29] LABS: BASOPHILS % (AUTO) 0.3 % (0.0-2.0); HEMATOCRIT 41 % (39-51); HEMOGLOBIN 13.3 g/dL (13.5-17.5); LYMPHOCYTES # (AUTO) 2.1 K/uL (0.8-4.8); LYMPHOCYTES % (AUTO) 25.8 % (20.0-44.0); MEAN CORPUSCULAR HGB CONC 33 g/dl (31.0-36.0); MEAN CORPUSCULAR VOLUME 90 fL (80-96); MONOCYTES # (AUTO) 0.7 K/uL (0.1-1.30); MONOCYTES % (AUTO) 8.2 % (2.0-12.0); NEUTROPHILS # (AUTO) 5.3 K/uL (1.8-8.9); NEUTROPHILS % (AUTO) 64.7 % (43.0-81.0); PLATELET COUNT (AUTO) 175 K/uL (150-450); RED BLOOD CELL COUNT(AUTO) 4.52 MIL/uL (4.5-6.0); WHITE BLOOD COUNT (AUTO) 8.2 K/uL (4.3-11.0)
[2020-09-11 06:30] LABS: CALCIUM, SERUM 8.8 mg/dL (8.5-10.1); CREATININE 0.9 mg/dL (0.6-1.3); POTASSIUM 3.6 mmol/L (3.5-5.1)
[2020-09-11] MEDS: INSULIN REGULAR, HUMAN 100 UNIT/ML 3 ML VIAL SQ PRN (06:46)
[2020-09-11] MEDS: BLOOD SUGAR DIAGNOSTIC 1 EACH STRIP IN SCH ×2 (06:49→11:32)
--- NOTE | 2020-09-11 07:38 | NUR ---
BLEMISH REMOVER OPENING NOTES RECEIVED PATIENT IN BED, AWAKE, A/O X4. PATIENT ON ROOM AIR; BREATHING EVEN AND UNLABORED, NO SOB PRESENT AT THIS TIME. TELE MONITOR WITH A CURRENT READING OF SB 56 BPM. STATING MILD PAIN IN HIS KNEE. R HAND IV ACCESS S/L PRESENT AND INTACT. SAFETY PRECAUTIONS IN PLACE; BED IN LOW POSITION AND LOCKED, RAILS UPX2, CALL LIGHT WITHIN REACH. WILL CONTINUE TO MONITOR PATIENT.
[2020-09-11 08:00] VITALS: BP 148/69
[2020-09-11] MEDS: PANTOPRAZOLE 40 MG TABLET.DR PO SCH (08:29)
[2020-09-11] MEDS: EZETIMIBE 10 MG TABLET PO SCH (08:29)
[2020-09-11] MEDS: ASPIRIN EC 81 MG TABLET.DR PO SCH (08:29)
[2020-09-11] MEDS: GABAPENTIN 300 MG CAPSULE PO SCH (08:29)
[2020-09-11] MEDS: CLOPIDOGREL BISULFATE 75 MG TABLET PO SCH (08:29)
[2020-09-11] MEDS ORDERED: LORAZEPAM 0.5 MG TABLET PO PRN (08:30)
[2020-09-11] MEDS ORDERED: HYDROCODONE/APAP 5/325MG TABLET PO PRN (08:30)
[2020-09-11] MEDS: FUROSEMIDE 40 MG TABLET PO SCH (08:30)
[2020-09-11] MEDS: VALSARTAN 80 MG TABLET PO SCH (08:32)
[2020-09-11] MEDS: ENOXAPARIN SODIUM 40 MG/0.4 ML DISP.SYRIN SQ SCH (08:34)
--- NOTE | 2020-09-11 08:41 | NUR ---
TEAM FACILITATOR NOTES PATIENT FEELING ANXIOUS; REQUESTING ATIVAN WITH HIS MORNING MEDS. PRN ATIVAN ADMINISTERED. WILL REASSESS.
[2020-09-11] MEDS: CARVEDILOL 12.5 MG TABLET PO SCH (09:00)
[2020-09-11] MEDS ORDERED: AMLODIPINE BESYLATE 5 MG TABLET PO SCH (09:00)
[2020-09-11 10:56] VITALS: BP 131/69
[2020-09-11] MEDS: NITROGLYCERIN 0.4 MG/TAB BOTTLE SL PRN (10:56)
--- NOTE | 2020-09-11 10:57 | NUR ---
RESTAURANT ASSOCIATE NOTES PATIENT COMPLAINING OF CHEST DISCOMFORT AND REQUESTING PRN NITRO SL. PRN NITRO SL ADMINISTERED. WILL REASSESS. BP 131/69 HR 57
--- NOTE | 2020-09-11 14:21 | NUR ---
LINUX SYSTEM ADMINLOOM OPERATOR NOTES PATIENT DISCHARGED HOME IN MEDICALLY STABLE CONDITION. PATIENT A/O X4, ON ROOM AIR, ABLE TO MAKE NEEDS KNOWN. ALL DISCHARGE PAPERWORK READY; TEACHING PROVIDED TO PATIENT REGARDING PHYSICIAN INSTRUCTIONS; PATIENT VERBALIZED UNDERSTANDING. BELONGINGS ACCOUNTED FOR AND PAPERWORK SIGNED WELL. SKIN INTACT. BEFORE LEAVING THE UNIT IV ACCESS WAS REMOVED WITH THE WRISTBAND. PATIENT LEFT THE INIT VIA WHEELCHAIR ACCOMPANIED BY THE BARREL BANDER AT 1415 AND LEFT THE HOSPITAL WITH HIS IN A PRIVATE CAR.
== END 2020-09-11 14:15 | disposition home or self-care (01) | DRG 190 ==
LOC: ER 23:10 → TRANSITION 09-09 02:09 → TELE 09-09 11:07
PROVIDERS: ADMIT Family Medicine; ATTEND Family Medicine
DX: I21.A1 Myocardial infarction type 2 (principal); E11.51 Type 2 diabetes mellitus with diabetic peripheral angiopathy without gangrene; E11.65 Type 2 diabetes mellitus with hyperglycemia; Z95.1 Presence of aortocoronary bypass graft; E66.9 Obesity, unspecified; F17.210 Nicotine dependence, cigarettes, uncomplicated; D63.8 Anemia in other chronic diseases classified elsewhere; E87.6 Hypokalemia; I10 Essential (primary) hypertension; I25.2 Old myocardial infarction; Z89.519 Acquired absence of unspecified leg below knee; Z83.3 Family history of diabetes mellitus; R74.8 Abnormal levels of other serum enzymes; Z68.35 Body mass index [BMI] 35.0-35.9, adult; Z89.512 Acquired absence of left leg below knee; Z79.4 Long term (current) use of insulin; I25.119 Atherosclerotic heart disease of native coronary artery with unspecified angina pectoris; Z20.822 Contact with and (suspected) exposure to COVID-19
CPT/HCPCS: 36415; 71045-TC; 80048-TC; 80061-TC; 80076-TC; 82962-TC; 83735-TC; 84484-TC; 85025-TC; 85730-TC; 87040-TC; 87081-TC; 93307-TC; C9803; G0378; J0456; J0696; J1650; J1815; J2270; J2405; J7040; J7060